=== PATIENT | male | born 1960 | race Caucasian/White ===

== ENCOUNTER 2024-08-22 12:04 | Emergency (ER) | payer BC, SELFPAY ==
[2024-08-22 12:06] VITALS: BP 130/83
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
[2024-08-22 13:04] LABS: % Basophils 0.6 % (0-2); % Eosinophils 2.2 % (0-6); % Immature Granulocytes 1.5 % (0-0.5); % Lymphocytes 22.8 % (20.5-51.1); % Monocytes 8.8 % (1.7-9.3); % Neutrophils 64.1 % (42.2-75.2); Absolute Eosinophils 0.2 10^3/uL (0-0.7); Absolute Immature Granulocytes 0.1 10^3/uL (0-0.05); Absolute Lymphocytes 1.6 10^3/uL (1.2-3.4); Absolute Monocytes 0.6 10^3/uL (0.1-0.6); Absolute Neutrophils 4.6 10^3/uL (1.4-6.5); Hematocrit 28.5 % (39.0-52.0); Hemoglobin 9.4 g/dL (13.0-18.0); Mean Corpuscular Hgb 23.2 pg (27.0-31.0); Mean Corpuscular Volume 70.4 fL (80.0-94.0); Mean Platelet Volume 8.5 fL (7.4-10.4); Nucleated Red Blood Cells % 0 % (-); Platelet Count 416 10^3/uL (130-400); Red Blood Cell Count 4.05 10^6/uL (4.70-6.10); White Blood Cell Count 7.1 10^3/uL (4.8-10.8)
[2024-08-22 13:31] LABS: ALT (SGPT) 11 U/L (0-50); AST (SGOT) 15 U/L (17-59); Albumin 3.2 g/dl (3.5-5.0); Alkaline Phosphatase 158 U/L (38-126); Blood Urea Nitrogen 23 mg/dl (9-20); Calcium 8.8 mg/dl (8.4-10.2); Carbon Dioxide 30 mmol/L (22-30); Chloride 92 mmol/L (98-107); Estimated Creatinine Clearance 103 ml/min; Glucose 356 mg/dl (70-99); Potassium 2.9 mmol/L (3.5-5.1); Sodium 132 mmol/L (135-145); Total Bilirubin 0.3 mg/dl (0.2-1.3); Total Protein 6.2 g/dl (6.3-8.2); eGFR > 60.00
[2024-08-22 14:15] LABS: Amphetamines Positive (Negative); Barbiturates Negative (Negative); Benzodiazepines Negative (Negative); Buprenorphine Negative (Negative); Cocaine Negative (Negative); Marijuana Negative (Negative); Methadone Negative (Negative); Methamphetamines Positive (Negative); Opiates Negative (Negative); Phencyclidine Negative (Negative); Tricyclic Antidepressants Negative (Negative)
[2024-08-22] MEDS: NOVOLOG vial 9 UNITS SC (14:29)
[2024-08-22] MEDS: KLOR-CON 40 MEQ PO ×2 (14:29→17:44)
[2024-08-22 14:38] LABS: Fentanyl, Urine Negative (Negative)
[2024-08-22 15:00] VITALS: BP 136/82
[2024-08-22] MEDS: MOTRIN 600 MG PO (20:46)
[2024-08-22 21:50] VITALS: BP 134/76
[2024-08-23 18:10] LABS: Glucose - Point of Care 401 mg/dl (70-99)
== END 2024-08-22 23:00 ==
LOC: EMR 12:04
PROVIDERS: EMERGENCY PHYSICIAN Student in an Organized Health Care Education/Training Program
DX: F32.A Depression, unspecified (principal); I10 Essential (primary) hypertension; E11.9 Type 2 diabetes mellitus without complications; R45.851 Suicidal ideations; Z79.4 Long term (current) use of insulin
CPT/HCPCS: 99283; 96372; 80053; 80306; 80307; 82962; 85025

== ENCOUNTER → 2024-08-23 02:24 | Emergency (ER) | payer BC, SELFPAY ==
[2024-08-23 02:36] VITALS: BP 137/87
[2024-08-23 04:35] LABS: Blood Urea Nitrogen 18 mg/dl (9-20); Calcium 8.9 mg/dl (8.4-10.2); Carbon Dioxide 32 mmol/L (22-30); Chloride 95 mmol/L (98-107); Estimated Creatinine Clearance 118 ml/min; Glucose 206 mg/dl (70-99); Magnesium 1.8 mg/dl (1.6-2.3); Potassium 3.4 mmol/L (3.5-5.1); Sodium 135 mmol/L (135-145); eGFR > 60.00
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
[2024-08-23 08:45] LABS: Glucose - Point of Care 287 mg/dl (70-99)
--- NOTE | 2024-08-23 09:12 | ED.GENMED ---
History of Present Illness
General
Chief Complaint: Crisis Evaluation
Time Seen by Provider: 08/23/24 03:25
Past History
Past History
ED Past Medical History: HTN, IDDM and Psychiatric
ED Past Surgical History: Other (Left foot transmetatarsal amputation)
Social History
Tobacco: Non-smoker
Alcohol: None
Personal:
Living: with family
Employment: Disabled
Family History
Family History: Other (Noncontributory)
Course
Orders/Labs/Results
Orders:
Orders
08/23/24 03:26
Crisis Consult Urgent
Reason for Consult: 302 from yesterday. Kristina Serrano refused transport
08/23/24 03:56
Basic Metabolic Panel Urgent
Magnesium Urgent
08/23/24 03:57
Foot, Left 3 View [CR Foot - Left Min 3 Views] Urgent
Comment:
Reason For Exam: chronic plantar wound, gen swelling-pain
08/23/24 09:05
HOSPITALIST CONSULT Urgent
Consulting Provider: Rosa Robledo
Was physician already notified: Yes
Reason for consult: diabetes/chronic wound
Abnormal Lab Results
08/23/24 08/23/24
03:56 08:44
Potassium 3.4 L mmol/L
(3.5-5.1)
Chloride 95 L mmol/L
(98-107)
Carbon Dioxide 32 H mmol/L
(22-30)
Glucose 206 H mg/dl
(70-99)
POC Glucose 287 H mg/dl
(70-99)
08/23/24 03:56
Vital Signs
Initial and Last Documented VS:
Initial Vital Signs
Temp Pulse Resp BP Pulse Ox
98.2 F 70 20 137/87 100
08/23/24 02:36 08/23/24 02:36 08/23/24 02:36 08/23/24 02:36 08/23/24 02:36
Last Documented Vital Signs
Temp Pulse Resp BP Pulse Ox
98.2 F 70 20 137/87 100
08/23/24 02:36 08/23/24 02:36 08/23/24 04:51 08/23/24 02:36 08/23/24 02:36
ED Attending Note
-
Portions of this chart may have been created with voice recognition software.� Occasional wrong word or��sound alike� substitutions may have occurred due to the inherent limitations of voice recognition software.
Discharge Plan
Departure
Patient Disposition: Psych Facility
Date of Disposition: 08/23/24
Time of Disposition: 06:00
Discharge Problem:
Involuntary commitment, chronic diabetic left plantar foot wound, chronic ambulatory dysfunction-walker, Medical clearance for psychiatric admission
Referrals:
UNKNOWN - PT NOT,INTERVIEWE [Family Provider] -
Interventions
Interventions:
*Risk Screen - Suicide Last Done: 08/23/24 02:36
*General Assessment Last Done: 08/23/24 02:36
*Neglect/Abuse Screening Last Done: 08/23/24 02:36
ED- Fall Risk Assessment Last Done: 08/23/24 04:41
*ED COVID-19 Vaccine History Last Done: 08/23/24 02:36
ED-Psychological Assessment Last Done: 08/23/24 04:41
Discharge Date and Time
Print Language: LIBERIAN
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
[2024-08-23] MEDS: KCL 40 MEQ PO (10:27)
[2024-08-23 12:14] LABS: Erythrocyte Sed Rate 74 mm/hour (0-20)
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
[2024-08-23] MEDS: LAMICTAL 75 MG PO (13:57)
--- NOTE | 2024-08-23 15:33 | W.PN.UPDATE ---
Update Note
Progress Note Update
patient became very agitated when i told him he would not be going home today. angry w who feels he needs rx in hospital. ordered standing seroquel po prn ativan and prn ativan/haldol iv for severe agitation dr monzon aware
--- NOTE | 2024-08-23 17:24 | CM ---
CM was consulted to assist with placement efforts. CM was advised that patient has been [facility] due to their inability to care for him. Of note, there were concerns regarding his ambulation. CM
advised to consult PT for full evaluation of his ability to walk. CM will remain available as needed.
[2024-08-23 18:38] LABS: Blood Urea Nitrogen 19 mg/dl (9-20); Calcium 9.1 mg/dl (8.4-10.2); Carbon Dioxide 33 mmol/L (22-30); Chloride 92 mmol/L (98-107); Estimated Creatinine Clearance 95 ml/min; Glucose 422 mg/dl (70-99); Potassium 3.8 mmol/L (3.5-5.1); Sodium 132 mmol/L (135-145); eGFR > 60.00
[2024-08-23] MEDS: NEURONTIN 300 MG PO ×2 (19:03→21:03)
[2024-08-23] MEDS: COZAAR 100 MG PO (19:03)
[2024-08-23] MEDS: ORETIC 25 MG PO (19:06)
[2024-08-23] MEDS: NOVOLOG FLEXPEN-LOW RESISTANCE 6 UNITS SC (19:06)
[2024-08-23] MEDS: LAMICTAL 25 MG PO (19:07)
[2024-08-23] MEDS: SEROQUEL 50 MG PO (21:03)
[2024-08-23 21:59] LABS: Glucose - Point of Care 336 mg/dl (70-99)
[2024-08-23 22:00] VITALS: BP 114/71
[2024-08-24 07:53] VITALS: BP 125/67
[2024-08-24] MEDS: SEROQUEL 50 MG PO ×2 (07:53→20:25)
[2024-08-24] MEDS: NEURONTIN 300 MG PO ×3 (07:53→22:52)
[2024-08-24] MEDS: CRESTOR 10 MG PO (07:54)
[2024-08-24] MEDS: LAMICTAL 75 MG PO (07:54)
[2024-08-24 08:01] LABS: Glucose - Point of Care 273 mg/dl (70-99)
[2024-08-24] MEDS: ORETIC 25 MG PO (08:03)
[2024-08-24] MEDS: COZAAR 100 MG PO (08:03)
[2024-08-24] MEDS: NOVOLOG FLEXPEN-LOW RESISTANCE 3 UNITS SC (09:13)
--- NOTE | 2024-08-24 11:11 | W.PN.UPDATE ---
Update Note
Progress Note Update
Pt seen, reviewed 302, tele-psych eval, Crisis assessment, ER record. Pt lying in bed, disheveled, slowed with slightly slurred speech, c/o sedation on Seroquel. Pt admits to 302 allegations of suicidal and homicidal statements/ideation, admits to
behavior on the 302, states he pushed [id number] because she would not leave and he was upset. Pt denies plan or intent, states S/H ideation was momentary due to argument. Pt admits not taking his medication for Bipolar d/o, HTN, or diabetes
for about 4 to 5 days, has been feeling down. 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 Affect irritable and dysphoric. Pt noted to be agitated with Dr Hall
yesterday when informed of recommendation for inpatient treatment. Pt now taking Lamictal, BP meds and insulin; denies SI/HI today. Pt shows no signs of amol or psychosis today.
Imp: Bipolar d/o, depressed
Rec: 303 hearing tomorrow, with recommendation for inpatient psychiatric treatment.
Stop daytime Seroquel due to sedation; continue Lamictal, Haldol/Ativan prn agitation. Will follow
[2024-08-24 13:21] LABS: Glucose - Point of Care 344 mg/dl (70-99)
[2024-08-24] MEDS: NOVOLOG FLEXPEN-LOW RESISTANCE 4 UNITS SC (13:22)
[2024-08-24] MEDS: LAMICTAL PO (13:35)
--- NOTE | 2024-08-24 13:36 | EDRN ---
the pts lunch arrived and this RN checked the pts blood glucose and the patient received insulin coverage per protocol, the pt is sitting on the side of the bed eating, no s/s of distress, no c/o pain, the pt denies needing anything at this time,
will continue to monitor the pt closely
[2024-08-24 17:38] LABS: Glucose - Point of Care 361 mg/dl (70-99)
[2024-08-24] MEDS: NOVOLOG FLEXPEN-LOW RESISTANCE 5 UNITS SC (17:38)
[2024-08-24 19:10] LABS: Glucose - Point of Care 458 mg/dl (70-99)
--- NOTE | 2024-08-24 19:16 | ED.CRISIS ---
ED Crisis Note
ED Crisis Note
Subjective:
63-year-old male here on a 302 with suicidal ideation, homicidal ideation. He is resting comfortably denies complaints today. His sugars have been running very high. He says he takes Lantus 50 units at nighttime and Humalog 30 units 3 times daily
with meals.
Objective:
Patient is resting comfortably in bed disheveled but not in distress. Vital signs are stable.
Assessment/Plan:
63-year-old male here on a 302 for suicidal/homicidal ideation; he has known insulin-dependent diabetes and his blood sugars are running very high. Last Accu-Chek 422. Will dose with 30 units of Humalog which is reported dose at home. Ordered
nighttime Lantus as well.
[2024-08-24] MEDS: NOVOLOG vial 30 UNITS SC (19:21)
[2024-08-24 20:22] LABS: Glucose - Point of Care 426 mg/dl (70-99)
[2024-08-24 21:24] LABS: Glucose - Point of Care 322 mg/dl (70-99)
[2024-08-24 22:32] LABS: Glucose - Point of Care 149 mg/dl (70-99)
[2024-08-24] MEDS: LANTUS 0.5 UNITS SC (23:07)
[2024-08-25 00:24] LABS: Glucose - Point of Care 150 mg/dl (70-99)
--- NOTE | 2024-08-25 03:00 | EDRN ---
Report received, patient is sleeping when observed, 1:1 remains as well as safe environment
--- NOTE | 2024-08-25 07:03 | EDRN ---
Report to EARL Arellano
[2024-08-25] MEDS: NEURONTIN 300 MG PO ×3 (08:55→22:40)
[2024-08-25] MEDS: CRESTOR 10 MG PO (08:55)
[2024-08-25] MEDS: ATIVAN 1 MG PO (08:56)
[2024-08-25 08:58] LABS: Glucose - Point of Care 147 mg/dl (70-99)
[2024-08-25] MEDS: ORETIC 25 MG PO (09:00)
[2024-08-25] MEDS: COZAAR 100 MG PO (09:00)
[2024-08-25] MEDS: NOVOLOG FLEXPEN-LOW RESISTANCE SC ×2 (09:01→13:21)
[2024-08-25 09:02] VITALS: BP 100/60
[2024-08-25] MEDS: NOVOLOG FLEXPEN 30 UNITS SC ×2 (09:31→18:01)
[2024-08-25 12:00] VITALS: BP 115/81
[2024-08-25 13:17] LABS: Glucose - Point of Care 86 mg/dl (70-99)
[2024-08-25] MEDS: NOVOLOG FLEXPEN SC (13:29)
--- NOTE | 2024-08-25 13:30 | EDRN ---
the pts blood glucose was checked and it was 86, this RN notified Dr. Stanley and per the provider the pts standing of 30units will not be administered
[2024-08-25] MEDS: ATIVAN 1 MG IV (14:00)
--- NOTE | 2024-08-25 14:29 | W.PN.UPDATE ---
Update Note
Progress Note Update
Pt seen, 303 hearing held. Pt continues to be unkempt, disheveled, dysphoric and irritable. No agitation, no signs of psychosis or amol. Pt denies S/H ideation. Taking prescribed medications, more awake with Seroquel at HS prn.
Imp: Bipolar d/o, depressed; now on 303 for up to 10 days of inpatient
Rec: continue current psych medication; inpatient psych placement
will follow
[2024-08-25 16:00] VITALS: BP 125/87
[2024-08-25 17:55] LABS: Glucose - Point of Care 224 mg/dl (70-99)
[2024-08-25] MEDS: NOVOLOG FLEXPEN-LOW RESISTANCE 2 UNITS SC (18:02)
[2024-08-25 18:59] LABS: Glucose - Point of Care 266 mg/dl (70-99)
[2024-08-25 22:38] LABS: Glucose - Point of Care 85 mg/dl (70-99)
[2024-08-25 22:39] VITALS: BP 104/65
[2024-08-25] MEDS: LAMICTAL 75 MG PO (22:39)
[2024-08-25] MEDS: LANTUS 0.5 UNITS SC (22:41)
[2024-08-25] MEDS: SEROQUEL 50 MG PO (22:48)
[2024-08-26 08:06] LABS: Glucose - Point of Care 142 mg/dl (70-99)
[2024-08-26 08:14] VITALS: BP 113/72
[2024-08-26] MEDS: NOVOLOG FLEXPEN-LOW RESISTANCE SC (08:23)
[2024-08-26] MEDS: NOVOLOG FLEXPEN 30 UNITS SC (08:39)
[2024-08-26] MEDS: COZAAR 100 MG PO (09:05)
[2024-08-26] MEDS: CRESTOR 10 MG PO (09:05)
[2024-08-26] MEDS: SEROQUEL 50 MG PO (09:05)
[2024-08-26] MEDS: NEURONTIN 300 MG PO (09:05)
[2024-08-26] MEDS: ORETIC 25 MG PO (09:05)
== END ==
LOC: EMR 02:24
PROVIDERS: Emergency Medicine; EMERGENCY PHYSICIAN Emergency Medicine; OTHER PHYSICIAN Psychiatry & Neurology Psychiatry
DX: R45.851 Suicidal ideations (principal); F31.9 Bipolar disorder, unspecified; Z91.199 Patient's noncompliance with other medical treatment and regimen due to unspecified reason; Z91.148 Patient's other noncompliance with medication regimen for other reason; R60.0 Localized edema; I10 Essential (primary) hypertension; Z63.8 Other specified problems related to primary support group; E11.51 Type 2 diabetes mellitus with diabetic peripheral angiopathy without gangrene; F32.A Depression, unspecified; E11.65 Type 2 diabetes mellitus with hyperglycemia; D50.9 Iron deficiency anemia, unspecified; E11.42 Type 2 diabetes mellitus with diabetic polyneuropathy; E11.69 Type 2 diabetes mellitus with other specified complication; M86.672 Other chronic osteomyelitis, left ankle and foot; R26.89 Other abnormalities of gait and mobility; E66.09 Other obesity due to excess calories; G89.29 Other chronic pain; Z79.4 Long term (current) use of insulin; Z89.422 Acquired absence of other left toe(s)
CPT/HCPCS: 99285; 96372 ×3; 73630; 80048; 82962; 83735; 85652; 86140; 87040; 93005